=== PATIENT | female | born 1930 | race Caucasian/White ===

== ENCOUNTER 2016-07-28 14:00 | Emergency (ER) | payer MEDICARE, MEDICAID ==
[~2016-07-28] VITALS: Ht 165.1 cm; Wt 90.7 kg
[~2016-07-28 14:00] MED LIST: ALEVE220 MG PO; AMLODIPINE5 M1 PO; ASPIRIN 81MG TA81 MG PO; CALCIUM WITH VI1 TAB PO; CRESTOR20 MG PO; DIOVAN HCT 12.51 TAB PO; DIOVAN320 MG PO; FLEXERIL10 MG PO; GLIPIZIDE 5MG TA5 MG PO; Glucosamine500 MG PO; HYDROCHLOROTHIA25 M1 PO; HYDROCODONE-APA1 TA1 PO; IMDUR ER30 MG PO; MECLIZINE HYD12.5 MG PO; METOPROLOL25 MG PO; MICARDIS40 MG PO; MOBIC7.5 MG PO; OXYBUTYNIN5 MG PO; RITE AID MELATON5 MG PO; VITAMIN B121000 MC2 PO; VITAMIN E 400400 IU PO; ZOFRAN ODT4 MG PO
[2016-07-28] MEDS ORDERED: AMLO5TAB PO (14:14)
--- OUTSIDE RECORDS SUMMARY | 2016-07-28 14:23 | External Medical Summary Rpt ---
Author Author , Organization [employer] Address Unknown Phone Unavailable Purpose Continuity of Care Document - through 2016
--- OUTSIDE RECORDS SUMMARY | 2016-07-28 14:23 | External Medical Summary Rpt ---
Demographics Preferred Language Sinhala Marital Status Unknown Hoahaoism Affiliation Unknown Race Unknown Ethnic Group Unknown Author Author , Organization [employer] Address Unknown Phone Unavailable Purpose Continuity of Care Document - through 2016 Immunization No patient found.
--- OUTSIDE RECORDS SUMMARY | 2016-07-28 14:23 | External Medical Summary Rpt ---
Author Author JEFFRY Price, [employer] Organization [employer] Address Unknown Phone Unavailable
--- OUTSIDE RECORDS SUMMARY | 2016-07-28 14:23 | External Medical Summary Rpt ---
Demographics Preferred Language Malay Marital Status Unknown Congregation Affiliation Unknown Race Unknown Ethnic Group Unknown Author Author , Organization [employer] Address Unknown Phone Unavailable Purpose Continuity of Care Document - through 2016 Immunization No patient found.
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
[2016-07-28 16:32] LABS: HEMOGLOBIN 12.1 g/dL (12.2-16.2); LYMPH # 1.3 K/mm3 (0.7-4.5); LYMPH % 16.9 % (10-50.0)
[2016-07-28 16:55] LABS: BUN 21 mg/dL (7-18)
[2016-07-28 16:56] LABS: GFR (ESTIMATED) 39 ML/MIN (59-)
[2016-07-28] MEDS ORDERED: LORTAB 5/3251 TAB PO (18:28)
[2016-07-28 18:51] VITALS: BP 157/89
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
== END 2016-07-28 18:52 | disposition home or self-care (01) ==
LOC: ER 14:00
PROVIDERS: Emergency Medicine
DX: S16.1XXA Strain of muscle, fascia and tendon at neck level, initial encounter (principal); S20.219A Contusion of unspecified front wall of thorax, initial encounter; S29.019A Strain of muscle and tendon of unspecified wall of thorax, initial encounter; I10 Essential (primary) hypertension; V49.9XXA Car occupant (driver) (passenger) injured in unspecified traffic accident, initial encounter; Y92.414 Local residential or business street as the place of occurrence of the external cause

== ENCOUNTER → 2016-08-05 | Outpatient (CLI) | payer MEDICARE, MEDICAID ==
[~2016-08-05] MED LIST changes: +AMLO5TAB PO; +LORTAB 5/3251 TAB PO
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
== END ==
LOC: RAD 08:57
DX: R07.89 Other chest pain (principal); V89.2XXA Person injured in unspecified motor-vehicle accident, traffic, initial encounter

== ENCOUNTER 2016-12-31 16:34 | Emergency (ER) | payer MEDICARE, MEDICAID ==
[~2016-12-31] VITALS: Ht 165.1 cm; Wt 83.9 kg
--- NOTE | 2016-12-31 17:46 | Urgent Treatment Center Report ---
History of Present Issue Date/Time Seen by Provider 12/31/16 3022 Visit Reason Pt arrived:Wheelchair Presenting Problem:PAIN RIGHT KNEE TODAY, DENIES INJURY Location if Accident: Onset of symptoms date/time:/ or onset unknown for:MEDICAL HX UNKNOWN Have you (or family members/close friends) recently traveled outside the [place]? N If Yes, where/when: Have you had exposure to infectious disease within the past month? TB? Other? Specify: Patient states that she has been to the Chiropractor twice this week and now she is having pain in her right knee State that she does not remember doing anything to cause injury to right knee. States that pain is worsened when she stands and bares weight on her right leg Source patient ALLERGIES Coded Allergies: No Known Allergies (11/17/15) Home Medications Active Scripts Ondansetron (Zofran 4MG Odt) 4 MG PO Q6HP PRN NAUSEA AND VOMITING #6 ODT Prov: 12/06/14 HYDROCODONE/ACETAMINOPHEN (Lortab 5-325 MG Tablet) 1 TAB PO TIDP PRN pain #12 TAB Prov: 07/28/16 Isosorbide Mononitrate (Imdur Er) 30 MG PO BID #60 TER Ref 2 Prov: 12/04/14 Valsartan (Diovan 320MG) 320 MG PO DAILY #30 TAB Ref 2 Prov: 12/04/14 Reported Medications MECLIZINE HCL (Meclizine Hydrochloride) 12.5 MG PO TIDP PRN DIZZINESS #30 OXYBUTYNIN CHLORIDE (Oxybutynin 5MG Tab) 5 MG PO DAILY Rosuvastatin Calcium (Crestor) 20 MG PO QHS Glipizide (Glipizide 5MG) 2.5 MG PO DAILY ASPIRIN (Aspirin) 81 MG PO DAILY Amlodipine Besylate (Amlodipine) 5 MG PO QHS HYDROCHLOROTHIAZIDE (Hydrochlorothiazide) 25 MG PO DAILY #30 History Medical History General CAD? No Angina: No ME: No Hypertension? Yes Hyperlipidemia? Yes CHF? No DVT? No PE? No COPD? No Asthma? No Anemia? No GERD? No Gastric ulcers? No GI Bleed? No Hernia? No Thyroid Problems? No Hypothyroidism? No CVA? No Seizures? No Diabetes? Yes Insulin Dependent: No Insulin Pump: No Home FSBS? Yes Renal Insuffiency? No UTI? No Stones? No BPH? No GB Disease: Yes Nephritic Syndrome? No Asplenia? No Hepatitis? No Sickle Cell Disease? No Arthritis? Yes Migraines? No Cataracts? Yes Glaucoma? No MRSA? No HIV? No TB? No Anxiety? No Depression? No Cancer? No More? Yes Additional hx: VERTIGO Immunization HX DT/Tetanus > 10 YRS Flu 2013-15FSN Pneumonia Received In Past Surgical Hx Previous Surgery?Y TUBAL CHOLECYSTECTOMY Family History Family HX Diabetes No CAD Yes Hypertension Yes Hyperlipidemia No Cancer No TB No Social History Smoking Hx Smoker: Never Smoker Tobacco: No Alcohol Alcohol: No Review of Systems All Other Systems Reviewed and Negative Comment Pain in right knee, does not recall injury Physical Exam Vital Signs Vital Signs Date Time Temp Pulse Resp B/P Pulse O2 O2 Flow FiO2 Ox Delivery Rate 12/31 1659 97.7 88 18 133/70 98 General Appearance normal appearance, no apparent distress Respiratory Status Yes: trachea midline, chest symmetrical. No: respiratory distress. Cardiovascular regular rate/rhythm Extremities Pain in right knee doesn't recall doing anything to injure leg no swelling, no redness, no temperature difference. no bruising Neurologic alert, normal exam, oriented x 3 Medical Decision Making LABS/Meds/Orders Pt receiving controlled substance in ED? No Results/Orders Orders Procedure Date/time Status UTC STABILIZE JOINT/AREA 12/31 183 Active KNEE-3 VIEWS-RT 12/31 175 Active XRAY/CT/US XRAY/CT/US XRAY knee XR interpretation by reviewed by me Xray Results no fracture seen, questionable knee effusion Comment Will follow up on official radiologist read and Orthopedics Consult Physician Consult Consult/PCP Dr Peterson Orthopedics Time Called 1832 Reason Orthopedic eval/care Comments Advised to give NSAIDS, have patient call office on Tuesday for appointment Departure Departure Time of Disposition 1838 Disposition DC Home or Self Care(routine) Clinical Impression Primary Impression: Knee pain Qualifiers: Chronicity: unspecified Laterality: right Qualified Code: M25.561 - Pain in right knee Condition STABLE Referrals Montrell COOK,Gilmer (Family) AL COOK, ROSALINDA NGUYỄN Patient Instructions DI for Knee Effusion, DI for Knee Pain Additional Instructions Take medication as prescribed If you notice any redness, began to run a fever, or leg showing any signs of infection go straight to the emergency room Follow up with family doctor Return if needed On Tuesday call Dr Peterson office for appointment [phone] Use walker and other assistance devices for walking Discharge Counseling Counseled pt/family regarding diagnosis, test results, medications/RX, home care, follow up needs Prescriptions Current Visit Scripts Ibuprofen (MOTRIN 400MG) 400 MG PO Q6HP PRN pain #40 TAB at 1333
[2016-12-31 19:04] VITALS: BP 133/70
--- NOTE | 2017-01-01 10:08 | RADIOLOGY REPORT PS360 ---
KNEE-3 VIEWS-RT COMPARISON: Right knee 07/19/2012 HISTORY: Chronic right knee pain TECHNIQUE: AP lateral and oblique views FINDINGS: There is mild joint space narrowing medially. There is narrowing of patellofemoral space with spurring of the superior border patella. There may be a small effusion in suprapatellar bursa. There is no fracture or loose body. There is faint arteriosclerotic calcification of the popliteal artery. IMPRESSION: Mild to moderate degenerative changes of the knee with possible small effusion, changes basely stable and unchanged from the previous study.
--- OUTSIDE RECORDS SUMMARY | 2017-01-07 08:21 | External Medical Summary Rpt | CCD ---
Author Author , JEFFRY TERAN Address Unknown Phone [email or web address] Purpose Continuity of Care Document - through 2016
--- OUTSIDE RECORDS SUMMARY | 2017-01-07 08:21 | External Medical Summary Rpt | CCD ---
Author Author JEFFRY Address Unknown Phone [email or web address] Purpose Continuity of Care Document - through 2016
--- OUTSIDE RECORDS SUMMARY | 2017-01-07 08:21 | External Medical Summary Rpt | CCD ---
Author Author , JEFFRY TERAN Address Unknown Phone [email or web address] Purpose Continuity of Care Document - through 2016
--- OUTSIDE RECORDS SUMMARY | 2017-01-07 08:21 | External Medical Summary Rpt | CCD ---
Author Author , JEFFRY TERAN Address Unknown Phone [email or web address] Immunization Name Date Rout CVX Reac Dose Comm Prov Is Faci e tion ent ider Refu lity Give sed n Infl 10-2 135 999 Hist D203 No D203 uenz 5-20 oric 45 45 a, 16 al High Info rmat Dose ion - Sour ce Unsp ecif ied
--- OUTSIDE RECORDS SUMMARY | 2017-01-07 08:21 | External Medical Summary Rpt | CCD ---
Author Author , JEFFRY TERAN Address Unknown Phone [email or web address] Immunization Name Date Rout CVX Reac Dose Comm Prov Is Faci e tion ent ider Refu lity Give sed n Infl 10-2 135 999 Hist D203 No D203 uenz 5-20 oric 45 45 a, 16 al High Info rmat Dose ion - Sour ce Unsp ecif ied
--- OUTSIDE RECORDS SUMMARY | 2017-01-07 08:21 | External Medical Summary Rpt | CCD ---
Author Author JEFFRY Address Unknown Phone Purpose Continuity of Care Document - through 2016
--- OUTSIDE RECORDS SUMMARY | 2017-01-07 08:21 | External Medical Summary Rpt ---
Author Author JE[employer]RY Price, [employer] Organization [employer] Address Unknown Phone Unavailable
== END 2016-12-31 19:05 | disposition home or self-care (01) ==
LOC: ER 16:34 → UTC 16:52
DX: M25.561 Pain in right knee (principal); E11.9 Type 2 diabetes mellitus without complications; E78.5 Hyperlipidemia, unspecified; I10 Essential (primary) hypertension; Z79.84 Long term (current) use of oral hypoglycemic drugs; Z79.82 Long term (current) use of aspirin; Z79.899 Other long term (current) drug therapy

== ENCOUNTER → 2017-03-14 | Outpatient (CLI) | payer MEDICARE, MEDICAID ==
[~2017-03-14] MED LIST changes: +MOTRIN 400MG.400 MG PO
--- NOTE | 2017-03-14 21:27 | RADIOLOGY REPORT PS360 ---
KNEE-3 VIEWS-RT Ordering Physician: Gilmer Stock MD Patient Age: 86 years: Female HISTORY: OSTEOARTHRITIS OF RT KNEE TECHNIQUE: 3 views right knee COMPARISON :12/31/2016 right knee. FINDINGS No acute fracture.. Moderate joint effusion suprapatella bursa. Degenerative changes right knee most evident at the medial compartment. Nonweightbearing 3 views right knee performed and show narrowing of the medial compartment with mild sclerotic changes about the slightly narrowed medial compartment. Tricompartmental marginal osteophytes are evident most generous at the medial and lateral compartment but also seen about the patellofemoral femoral joint. Pain pain at the right calf indication popliteal artery again noted. Stable. IMPRESSION Degenerative arthritic changes at the right knee most evident involving medial compartment.. No significant change since 2016 right knee study
== END ==
LOC: RAD 08:38
DX: M17.11 Unilateral primary osteoarthritis, right knee (principal)